=== PATIENT | male | born 1935 | race Caucasian/White ===

== ENCOUNTER 2022-01-10 12:30 | Inpatient (IN) | payer MEDICARE ==
[~2022-01-10] VITALS: Ht 167.6 cm; Wt 68.8 kg
[2022-01-10] MEDS ORDERED: Lisinopril2.5 MG PO (17:43)
[2022-01-10] MEDS ORDERED: METO25ER PO (17:44)
[2022-01-10] MEDS ORDERED: MEMA5TAB PO (17:44)
[2022-01-10] MEDS ORDERED: Aspir 8181 MG PO (17:45)
[2022-01-10] MEDS ORDERED: NITR.4SL SL (17:46)
[2022-01-10] MEDS ORDERED: B-12 COMPL1000 MCG/2 IM (17:47)
--- NOTE | 2022-01-10 18:35 | NUR ---
PT IS A TRANSFER ADMIT FROM [facility] ARRIVED VIA AMBULANCE AT APPROX 1700. PT IS HERE FOR BRADYCARDIA/NSTEMI. PT IS ALERT AND ORIENTED TO SELF AND SITUATION, MILD [place], GETS CONFUSED AND IS FORGETFUL. PT HAS HX OF DEMENTIA. PT WAS ABLE TO AMBULATE AND TRANSFER TO PCU BED ASSISTED. VITALS TAKEN HRR BRADYCARDIA 20-40'S, PT ASYMPTOMATIC AT THIS TIME ZOLL AND ATROPINE PUSH AT BEDSIDE IF PT GETS SYMPTOMATIC, CARDIOLOGY CONSULT CALLED IN FOR POSS PACEMAKER PLACEMENT IN AM, NPO AFTER MIDNIGHT, BP SYSTOLIC ELEVATED AT 160-170'S, SATS ABOVE 95% ON RA, AFEBRILE. NO SKIN ISSUES NOTED OTHER THAN BEING FRAGILE DUE TO OLD AGE, PT HAS OBVIOUS INGUINAL HERNIA, LUNGS CLEAR UPON AUSCULTATION, PT DENIES ANY CHEST PAIN/DIZZINESS. NO NAUSEA/VOMITING. PT'S CALLED WAS GIVEN UPDATE REGARDING THE PT VERIFIED CODE STATUS FULL CODE OF THE MEANTIME, ALSO STATED THAT PT IS LACTOSE INTOLERANT AND CAN ONLY TOLERATE SOFT FOOD DUE TO MISSING TEETH. PT IS IN BED NOW RESTING BED ALARM ON FOR SAFETY. WILL REPORT TO ONCOMING SHIFT
--- NOTE | 2022-01-10 22:08 | NUR ---
UPDATE PATIENT FREQUENTLY TRYING TO GET OUT OF BED. ASKED PATIENT IF HE WAS ABLE TO VOID, PATIENT ATEMPTED TO USE URINAL/BEDSIDE COMMODE, NO SUCCESS. BLADDER SCAN SHOWS 432mls IN BLADDER. CALL PLACED TO RESIDENT, ORDER FOR STRAIGHT CATH RECIEVED.
[2022-01-10 23:04] LABS: Source, Urine Straight Cath
[2022-01-10 23:10] LABS: Appearance, Urine Clear (Clear); Bilirubin, Urine Neg (Neg); Blood, Urine 4+ (Neg); Color, Urine Yellow (P-Yellow); Glucose Qualitative, Urine Neg (Neg); Ketones, Urine 2+ (Neg); Leukocyte Esterase, Urine Neg (Neg); Nitrite, Urine Neg (Neg); Protein, Urine 3+ (Neg); Specific Gravity, Urine 1.025 (1.003-1.022); Urobilinogen, Urine NORM (Normal)
[2022-01-10 23:30] LABS: Amorphous Light (0-Heavy); Bacteria Mod /hpf; Red Blood Cells, Urine 0-2 /hpf (0-2); Squamous Epithelial Cells Not Seen /hpf (Few); White Blood Cells, Urine 0-2 /hpf (0-5)
--- NOTE | 2022-01-11 01:15 | NUR ---
UPDATE CALL PLACED TO RESIDENT REGARDING PATIENT INABILITY TO VOID WELL PATIENT BECOMING AN INCREASED FALL RISK D/T PATIENT CRAWLING OUT OF BED. RESIDENT ORDERED CARDENAS PLACEMENT D/T RETENTION AND TALI VEST FOR SAFETY. BED ALARM ON.
--- NOTE | 2022-01-11 03:33 | NUR ---
UPDATE PATIENT CONTIUES TO ATTEMPT TO CRAWL OUT OF BED WELL PULL AT CARDENAS. TALI REMAINS IN PLACE. CALLPLACED TO RESIDENT, ORDERS RECIEVED FOR OT DOSE OF HALDOL.
[2022-01-11 04:43] LABS: Bun/Creatinine Ratio 21.7 (12.0-20.0); Calcium, Blood 9.3 mg/dL (8.5-10.1); Creatinine, Blood 1.84 mg/dL (0.60-1.20)
--- NOTE | 2022-01-11 06:39 | NUR ---
SHIFT SUMMARY PATIENT ALERT, ORIENTED TO SELF ONLY. PLEASANTLY CONFUSED. BP STABLE, HR MID 20s-30s ENTIRE SHIFT. PATIENT REMAINS ASYMPTOMATIC OF HR. REMAINS ON RA WITH O2 SAT >90%. CARDENAS PLACED THIS SHIFT D/T RETENTION, DRAINING DARK YELLOW URINE, SEE PREVIOUS NOTES. PATIENT IN RESTRAINTS D/T CONFUSION, INCREASED FALL RISK AND PULLING AT LINES/TUBES. PATIENT IS NOT EASILY REDIRECTABLE BUT IS COOPERATIVE WITH CARE. CAMERA AND BED ALARM ON FOR SAFETY. NO OTHER SIGNIFICANT CHANGES THIS SHIFT, WILL REPORT TO DAY SHIFT RN.
--- NOTE | 2022-01-11 11:05 | NUR ---
AM NOTES; PT IN BED WITH RESTRAINTS ON DURING SHIFT CHANGE. PT HAS BEEN MORE CONFUSED SINCE LAST NIGHT CARDENAS WAS PLACED PT WAS RETAINING AND KEEPS ON WANTING TO GET OUT OF BED, PULLING ON RESTRAINTS AND TELE CORDS. VITALS HRR REMAINED BRADYCARDIC AT 20-30'S, BP SYTOLIC 160'S, SATS ABOVE 90% ON RA, AFEBRILE. DR MATOS CAME IN TO SEE PT TODAY, ORDERED ECHO AND POSSIBLY PACEMAKER BUT NOT FOR TODAY POSSIBLY TOMORROW UP IN [place] FOR A DIFFERENT TYPE OF PACEMAKER. PT HAS BEEN ASYMPTOMATIC FOR BRADYCARDIA, ATROPINE AND ZOLL REMAINS AT BEDSIDE PRN. DIET WAS RESUMED TOLERATED WELL. NO OTHER ISSUES AT THIS TIME WILL MONITOR
--- NOTE | 2022-01-11 17:47 | NUR ---
PT SUMMARY: SEE AM NOTES; PT CONTINUES TO PULL ON LINES AND CATHETER REPLACED STAT LOCK MULTIPLE TIMES, ATTEMPTED TO GET OUT OF BED MULTIPLE TIMES NOT RETAINING ANY INFORMATION VERY FORGETFUL. RESTRAINTS REMAINED IN PLACE. STILL PLAN ON COBRA TRANSFERRING FOR PACEMAKER PLACEMENT IN THE MORNING AWAITING FOR BED AVAILABILITY. HRR REMAINED ABOVE 30'S, STILL ASYMPTOMATIC ECHO WAS DONE TODAY AWAITING FOR RESULT. BP SYSTOLIC 140'S, SATS ABOVE 95% ON RA. TOLERATING FOOD INTAKE. CARDENAS DRAINING VIA GRAVITY. NO OTHER ISSUES ENCOUNTERED CALL LIGHTS IN REACH WILL REPORT TO ONCOMING SHIFT
--- NOTE | 2022-01-12 03:23 | NUR ---
UPDATE THIS RN TO PATIENT ROOM, HR SUSTAINING 24, PATIENT BECOMING TACHYPNEIC AND FINGERTIPS ARE TURNING ADAME. TESTBOARD OPERATOR AT BEDSIDE WITH THIS RN. ATROPINE GIVEN PER EMAR. PACER PADS PLACED. MANUAL BP STABLE. CALL PLACED TO RESIDENT WITH UPDATE, NO NEW ORDERS AT THIS TIME.
--- NOTE | 2022-01-12 04:10 | NUR ---
UPDATE SECOND IV ESTABLISHED. RESIDENT TO BEDSIDE AROUND 0330. x2 MORE DOSES OF ATROPINE GIVEN PER EMAR. THIS RN, BEACH EXPERT, AND RESIDENT DISCUSSING PLAN. ICU BEACH EXPERT CALLED WITH RECOMENDATIONS. ORDERS FROM RESIDENT TO TRANSFER TO ICU 3. ZOLL ON PATIENT FOR MONITORING DURING TRANSFER. PATIENT TO ICU 3. BEDSIDE REPORT GIVEN. PATIENT TRANSFERRED TO ICU WITH ALL BELONGINGS. PATIENT'S CALLED WITH UPDATE.
[2022-01-12 04:45] LABS: Base Excess Venous -8.1 mmol/L; Bicarbonate Venous 17.5 mmol/L (24.0-30.0); pH Blood Venous 7.28 (7.34-7.37)
[2022-01-12 05:22] LABS: Bun/Creatinine Ratio 26.9 (12.0-20.0); Calcium, Blood 9.4 mg/dL (8.5-10.1); Creatinine, Blood 1.97 mg/dL (0.60-1.20); Potassium, Blood 4.8 mmol/L (3.5-5.5)
[2022-01-12 05:23] LABS: BASOPHILS ABSOLUTE AUTO 0.03 K/mm3 (0.00-0.23); BASOPHILS PERCENT AUTO 0 % (0-2); EOSINOPHILS PERCENT AUTO 0 % (0-6); Hematocrit 43.8 % (37.0-53.0); Hemoglobin 14.4 g/dL (13.5-17.5); IMMATURE GRAN ABSOLUTE AUTO 0.14 K/mm3 (0.00-0.10); IMMATURE GRAN PERCENT AUTO 1 % (0-1); LYMPHOCYTES ABSOLUTE AUTO 1.31 K/mm3 (0.84-5.20); LYMPHOCYTES PERCENT AUTO 8 % (21-46); MONOCYTES ABSOLUTE AUTO 1.68 K/mm3 (0.16-1.47); MONOCYTES PERCENT AUTO 10 % (4-13); Mean Corpuscular HGB 28.7 pg (26.0-34.0); Mean Corpuscular HGB Conc 32.9 g/dL (31.5-36.5); Mean Corpuscular Volume 87 fL (80-100); Mean Platelet Volume 12.9 fL (9.1-12.4); NEUTROPHILS ABSOLUTE AUTO 14.42 K/mm3 (1.96-9.15); NEUTROPHILS PERCENT AUTO 82 % (41-73); Platelet Count 192 K/mm3 (150-400); RDW Coefficient Variation 15.9 % (11.7-14.2); RDW Standard Deviation 50.6 fL (35.1-46.3); Red Blood Cell Count 5.02 M/mm3 (4.30-5.90); White Blood Cell Count 17.58 K/mm3 (4.00-11.30)
--- NOTE | 2022-01-12 05:58 | NUR ---
TRANSFER FROM PCU 3 TO ICU 3: PT ARRIVED TO THE UNIT AT 0353. PT BROUGHT OVER FOR SYMPTOMATIC BRADYCARDIA WITH HR AT 22. PT HAD MENTALITY CHANGE AND BLUISH DISCOLORATION IN FINGERTIPS. PT CAME OVER TO THE UNIT AND BP 150/100 AND HR IN THE 20'S. DR. CHAPMAN AT BEDSIDE DURING TRANSFER AND ORDERS FOR DOPAMINE RECIEVED AND STARTED ON 2 MCG; CURRENTLY DOPAMINE GTT AT 5 MCG WITH HR INCREASING TO 35-38. ORDERS FOR VBG AND CRTICAL RESULTS CAME BACK WT PH 7.28. AT THIS TIME THIS RN PLACED A CALL TO DR MATOS TO UPDATE HIM ON PT TRANSFER, NO NEW ORDERS. DR CHAPMAN CALLED AND UPDATED ON CRITICAL PH AND ORDERS FOR CBG/CMP RECIEVED. PT ON RA UPON ARRIVAL WITH RR 20-24 AND O2 LEVELS MAINTAINING 96<. PT HAS TWO PERIPHERIAL IVS PLACED THIS SHIFT IN THE EDWIGE AND RFA. PT HAS A CARDENAS CATH IN PLACE THAT IS DRAINING TO GRAVITY WITH MATILDA URINE AND 300 OUTPUT. PT HAS SOFT, NON-TENDER ABD WITH HYPOACTIVE BOWEL SOUNDS IN ALL FOURQUADRANTS. PPP X 4 WITH WARM EXTREMITIES; HANDS AND FEET ARE COOL TO TOUCH. OBTAINING MANUAL BP AT THIS TIME. PT IS ALERT BUT DOES NOT FOLLOW COMMAND; PT IS FLAT AFFECT AND IS COOPERATIVE WITH CARE, HX DEMENTIA. WILL CONTINUE TO MONITOR CLOSELY UNTIL ONCOMING RN ARRIVES.
--- NOTE | 2022-01-12 06:42 | NUR ---
UPDATE CALLED DR MACHADO REGARDING CRITICAL LABS LACTIC ACID 6.9 AND TROPONIN 227. NEW ORDERS PROVIDED FOR NS 100ML/HR FOR 1L AND BNP LAB.
--- NOTE | 2022-01-12 07:48 | NUR ---
ASSUMED CARE BEDSIDE REPORT FROM KAROLINE/VERNELL MARKS. DR MATOS AT BEDSIDE. PT LAYING IN BED, UNRESPONSIVE TO PAINFUL STIMULI. DOES NOT MAKE EYE CONTACT. PUPILS 3 MM, EQUAL, MINIMALLY RESPONSIVE TO LIGHT. JUNCTIONAL RHYTHM ON MONITOR, NO P WAVES NOTED, RATE 30-34. RADIAL PULSE PAL. IRREGULAR BREATHING PATTERN, ELDON DEAN. LUNGS CLEAR. O2 PLACE AT 3L VIA NC FOR DESAT DURING APNEIC PERIODS. PT PALE. ZOLL PADS IN PLACE. DOPAMINE GTT AT 5 MCG/MIN. SBP 160'S. PLAN PER DR MATOS TO TRANSFER FOR WIRELESS PACEMAKER PLACEMENT. WILL CONTINUE TO MONITOR CLOSELY.
--- NOTE | 2022-01-12 09:44 | NUR ---
Spiritual Care _ Palliative Care request Pt. is mostly non responsive. Words of comfort and pastoral encouragement are given. Prayed a prayer of blessing over the Pt. as well as for Pts. spouse who is en route from [place].
--- NOTE | 2022-01-12 16:42 | NUR ---
Spiritual Care Visit. Pt. mostly non responsive. Pts. sister and niece are present. Facilitated life review and established rapport. At families request prayed for Pt. Continued building rapport. Palliative Care nurses came and answered questions for the family. Family verbalized gratitude for the spiritual care visit.
--- NOTE | 2022-01-12 17:29 | NUR ---
SHIFT SUMMARY PT CONTINUES TO BE IN JUNCTIONAL RHYTHM, RATE 28-34. DOPAMINE GTT AT 10 MCG/MIN. CONTINUES TO IRREGULAR RESP, ELDON DEAN. LUNGS CLEAR. 2L VIA NC. PT NOT RESPONSIVE TO PAINFUL STIMULI MOST OF SHIFT, THIS AFTERNOON RESPONSIVE TO PAINFUL STIMULI. TREMOROUS, APPEARS UNCOMFORTABLE, MEDICATED c MORPHINE SL. CARDENAS PATENT, DRAINING TO GRAVITY. GOALS OF CARE DISCUSSED c DR MATOS AND AINSLEY. SON AND POSSIBLY WILL ARRIVE TOMORROW. CONTINUE CURRENT TREATMENT UNTIL FAMILY VISITS. WILL CONTINUE TO MONITOR UNTIL REPORT TO ONCOMING NURSE.
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
--- NOTE | 2022-01-12 20:13 | NUR ---
ASSUMED CARE AT 1900 PATIENT REPSONDS TO VERBAL STIMULI, ANSWERS YES/NO TO QUESTIONS, SLOW TO RESPOND. RIGHT PUPIL SLIGHTLY BIGGER THAN LEFT. MOVES ALL EXTREMITIES. 02 SATS 99% ON 2L VIA NC. HR BRADYCARDIC 30-40, BP STABLE ON DOPAMINE AT 10 MCG/KG/MIN, WILL TITRATE NEEDED. CARDENAS PATENT AND DRAINING TO GRAVITY. PATIENT REPOSITIONED. NIECE AND SISTER IN ROOM AT START OF SHIFT. SEE SHIFT ASSESSMENT FOR MORE INFORMATION.
--- NOTE | 2022-01-13 05:09 | NUR ---
SHIFT SUMMARY PATIENT IS ALERT AND ORIENTED X2, SELF AND FOLLOWING COMMANDS. SPEECH IS GARBLED AND PATIENT IS SLOW TO RESPOND. PUPILS EQUAL AND REACTIVE. MOVES ALL EXTREMITIES. 02 SATS 94% ON 2L VIA NC, LS CLEAR. HR 26-35, BP LABILE, DOPAMINE TITRATED THROUGH THE SHIFT, NOW 10 MCG/KG/MIN. UNABLE TO GET BP USING THE MONITOR, MANUAL BP DONE AND 180/60. CARDENAS PATENT AND DRAINING TO GRAVITY. PATIENT REPOSITIONED Q2 HOURS. ORAL CARE DONE. CALL LIGHT IN REACH.
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
--- NOTE | 2022-01-13 15:52 | NUR ---
Brief supportive visit this afternoon. Pt being transported to microbiology lab analyst. Family remains in room. Offered active listening and reviewed plan of care. Family engaging with each other having conversation. Breif and gentle discussion regarding the importance of planning for the future. Answered questions and continued supportive visit. Spoke with coin machine operator Roby and discussed case. Family changed Pt to Full Code. Palliative Care will remain available.
--- NOTE | 2022-01-13 16:53 | NUR ---
TRANSFER TO [facility] PT RETURNS FROM [employer] [facility] AT 1622. TV PACER TO [facility], 40 CM AT INSERTION SITE. SECURED c TEGADERM AND GAUZE. SETTINGS 50/10/8. PACED TO RATE OF 50 ON MONITOR, PT HAS INTRINSIC BEATS. BP STABLE. DOPAMINE OFF. PT ALERT TO NAME, . FOLLOWS DIRECTIONS. REACH AT BEDSIDE, REPORT TO STAFF. REPORT TO ABBY MARKS AT [facility]. OTD AT 1640.
== END 2022-01-13 16:45 | disposition short-term general hospital (02) | DRG 260 ==
LOC: EDBD 12:30 → PCU 12:30 → ICUE 12:30
PROVIDERS: Family Medicine; ADMIT Hospitalist
PROC: 02HK3JZ Insertion of Pacemaker Lead into Right Ventricle, Percutaneous Approach (ICD-10-PCS; principal; 2022-01-13)
PROC: 5A1223Z Performance of Cardiac Pacing, Continuous (ICD-10-PCS; 2022-01-13)
DX: R00.1 Bradycardia, unspecified (principal); G93.41 Metabolic encephalopathy; E87.29 Other acidosis; I12.9 Hypertensive chronic kidney disease with stage 1 through stage 4 chronic kidney disease, or unspecified chronic kidney disease; N18.32 Chronic kidney disease, stage 3b; E11.22 Type 2 diabetes mellitus with diabetic chronic kidney disease; Z78.1 Physical restraint status; F01.50 Vascular dementia, unspecified severity, without behavioral disturbance, psychotic disturbance, mood disturbance, and anxiety; Z66 Do not resuscitate; I48.19 Other persistent atrial fibrillation; I25.10 Atherosclerotic heart disease of native coronary artery without angina pectoris; D50.9 Iron deficiency anemia, unspecified; Z95.1 Presence of aortocoronary bypass graft; Z90.49 Acquired absence of other specified parts of digestive tract; Z98.890 Other specified postprocedural states; Z88.8 Allergy status to other drugs, medicaments and biological substances; Z79.82 Long term (current) use of aspirin; Z79.899 Other long term (current) drug therapy
CPT/HCPCS: 33210; 36415; 71045; 76937; 80048; 81001; 82803; 82947; 83605; 83880; 84443; 84484; 85025; 87086; 93005; 93010; 93306; 94762; A9270; C1769; C1894; J0461; J1265; J1644; J1815; J7040